=== PATIENT | male | born 1960 | race Caucasian/White ===

== ENCOUNTER 2022-01-10 09:38 | Day surgery (SDC) | payer OTHER | END 2022-01-10 10:00 | disposition home or self-care (01) | LOC: SDC-PAIN 09:38 | PROVIDERS: ATTEND Psychiatry & Neurology Pain Medicine | DX: R73.9 Hyperglycemia, unspecified (principal); Z53.8 Procedure and treatment not carried out for other reasons | CPT/HCPCS: 82947 ==

== ENCOUNTER 2022-01-10 10:16 | Emergency (ER) | payer OTHER ==
--- NOTE | 2022-01-10 10:29 | ERPHSYRPT ---
- History of Present Illness Time Seen by Provider: 01/10/22 10:29 Source: patient Exam Limitations: no limitations Physician History: This is a 61-year-old white male who was sent to our emergency department by the pain specialist clinic secondary to him stating that he intermittently has blurred vision in his right eye over "years". Patient denies trauma to his head. Patient denies headache. Patient denies injury to his head. He was here today to get an injection in his back and hip to help control chronic pain in those areas. The procedure was canceled because of his preoperative complaint. Patient systolic blood pressure on arrival to emergency department is 150. Patient does have a history of hypertension, diabetes and hyperlipidemia. Patient denies chest pain. Patient denies shortness of breath. He has no flulike symptoms. Patient chronically walks with a cane. He currently is a daily smoker of cigarettes. Patient has a primary care provider in another city. He lives in [facility]. Patient has not seen an plane tableman or car painter for his symptoms. He is never seen a neurologist for the symptoms. Patient cannot recall when the last time he had a CAT scan of his head but he states he has had them in the past. Patient told triage nurse that his expectation is to have a CT scan of the head performed. Timing/Duration: other (Present for years.) Severity: mild Character of Deficits: vision problems (Right thigh primarily, intermittent over "years") Deficits: no difficulties (Patient chronically walks with a cane) Baseline/Normal Cognition: alert oriented x 3 Current Cognition: alert oriented x 3 Baseline Gait: uses cane Associated Symptoms: denies symptoms Allergies/Adverse Reactions: No Known Drug Allergies Allergy (Verified 01/10/22 10:45) Home Medications: Atorvastatin Calcium [Lipitor] 40 mg PO DAILY 01/10/22 [History] Cholecalciferol (Vitamin D3) [Vitamin D3 Max] 5,000 units PO DAILY 01/10/22 [History] Losartan Potassium 50 mg PO DAILY 01/10/22 [History] Metformin HCl [Metformin HCl ER] 500 mg PO DAILY 01/10/22 [History] Pregabalin [Lyrica 100Mg] 100 mg PO BID 01/10/22 [History] Travel Risk - International Travel Have you traveled outside of the country in past 3 weeks: No - Coronavirus Screening Are you exhibiting any of the following symptoms?: No Close contact with a COVID-19 positive Pt in past 14-21 Days: No - Review of Systems Constitutional: No Symptoms Eyes: Vision Changes (Intermittent, brief, spontaneous resolution) Ears, Nose, & Throat: No Symptoms Respiratory: No Symptoms Cardiac: No Symptoms Abdominal/Gastrointestinal: No Symptoms, Appetite Changes Musculoskeletal: No Symptoms Neurological: No Symptoms Psychological: No Symptoms Endocrine: No Symptoms Hematologic/Lymphatic: No Symptoms Immunological/Allergic: No Symptoms All Other Systems: Reviewed and Negative - Past Medical History Pertinent Past Medical History: Yes - Past Surgical History Past Surgical History: Yes - Nursing Vital Signs Nursing Vital Signs: Initial Vital Signs Temperature 98.5 F 01/10/22 10:35 Pulse Rate 79 01/10/22 10:35 Blood Pressure 150/91 01/10/22 10:35 O2 Sat by Pulse Oximetry 99 01/10/22 10:35 Pain Scale Pain Intensity 0 - [place]ata Coma Scale Best Eye Response ([place]): (4) open spontaneously Best Verbal Response ([place]): (5) oriented Best Motor Response ([place]): (6) obeys commands [place] Total: 15 - Physical Exam General Appearance: no apparent distress, alert Eye Exam: bilateral eye: normal inspection, PERRL, EOMI Ears, Nose, Throat Exam: normal ENT inspection, moist mucous membranes Neck Exam: normal inspection, non-tender, supple, full range of motion Respiratory: airway intact, No chest tenderness, No respiratory distress Cardiovascular: regular rate/rhythm, normal heart sounds, normal peripheral pulses Gastrointestinal: No tenderness Rectal Exam: not done Back Exam: normal inspection, normal range of motion, No CVA tenderness, No vertebral tenderness Extremity Exam: normal inspection, normal range of motion, pelvis stable Mental Status: alert, oriented x 3, cooperative automatic maintainer Exam: normal hearing, normal speech, PERRL, tongue midline Motor/Sensory: no motor deficit, no sensory deficit, no pronator drift Skin Exam: normal color, warm, dry SpO2 Interpretation: normal O2 Delivery: Room Air Ordered Tests: Active Orders 24 hr Category Date Time Status HEAD WITHOUT CONTRAST [CT] Stat Exams 01/10/22 10:58 Completed - Progress Progress: unchanged Progress Note: 01/10/22 11:28 CAT scan of the head without contrast shows a nonacute senile brain. There is paranasal sinus disease present Counseled pt/family regarding: diagnosis, need for follow-up, rad results - Departure Departure Disposition: Home Clinical Impression: Sinusitis Condition: Stable Critical Care Time: No Referrals: DOCTOR,NO FAMILY [Primary Care Provider] - Follow up/PCP as directed Additional Instructions: Take all your medication as prescribed. Follow-up with your primary care physician with referral to car painter and neurologist for further evaluation and management. Prescriptions: Azithromycin 250 mg [Zithromax 250 MG TABLET] 250 mg PO ZPACK #6 tablet
[2022-01-10 11:19] VITALS: BP 119/79; PULSE 56; O2SAT 97
--- NOTE | 2022-01-10 11:25 | XRAY ---
Indication: Chronic right eye blurry vision for years. Multiple contiguous axial images obtained through the head without contrast. Comparison: None Age-appropriate global atrophy and mild periventricular degenerative micro-ischemia bilaterally. No acute intracranial hemorrhage, abnormal extra-axial fluid collection, or mass effect. Fourth ventricle is midline without hydrocephalus. Bony calvarium intact. Mild mucosal thickening both ethmoid and lesser degree right sphenoid sinuses. Mastoid air cells are clear. Impression: Nonacute senile brain. Incidental minimal paranasal sinus disease.
== END 2022-01-10 11:35 | disposition home or self-care (01) ==
LOC: ED 10:16
DX: J32.9 Chronic sinusitis, unspecified (principal); H53.8 Other visual disturbances; I10 Essential (primary) hypertension; E78.5 Hyperlipidemia, unspecified; E11.9 Type 2 diabetes mellitus without complications; Z79.84 Long term (current) use of oral hypoglycemic drugs; Z79.899 Other long term (current) drug therapy; Z72.0 Tobacco use
CPT/HCPCS: 70450; 99282